=== PATIENT | male | born 1960 | race Caucasian/White ===

== ENCOUNTER 2021-11-08 15:38 | Emergency (ER) | payer OTHER ==
[~2021-11-08] VITALS: Ht 170.2 cm; Wt 72.6 kg
[2021-11-08 15:38] VITALS: BP_SYST 159
--- NOTE | 2021-11-08 15:38 | NUR ---
BROUGHT BACK TO BED #3 AND TRIAGED. REPORT GIVEN TO MIKEY
--- NOTE | 2021-11-08 15:43 | NUR ---
pt ambulated to bed 3
--- NOTE | 2021-11-08 15:44 | NUR ---
61yo m with c/o left-sided chest pain since this morning. cp described as 1/10, pressure-like, non-radiating, aggravated by breathing deeply. pt denies experiencing episode in the past. ermd made aware of pt status.
[2021-11-08 16:27] LABS: BASOPHILS # (AUTO) 0.1 K/uL (0.0-0.2); BASOPHILS % (AUTO) 1.5 % (0.0-2.0); EOSINOPHILS % (AUTO) 0.3 % (0.0-4.0); HEMOGLOBIN 14.1 g/dL (14.0-18.0); LYMPHOCYTES # (AUTO) 0.9 K/uL (1.0-5.5); LYMPHOCYTES % (AUTO) 10.2 % (20.5-51.5); MEAN CORPUSCULAR HEMOGLOBIN 30 pg (27-31); MEAN CORPUSCULAR HGB CONC 34 % (32-36); MEAN CORPUSCULAR VOLUME 88 fL (79.0-98.0); MONOCYTES # (AUTO) 0.4 K/uL (0.0-1.0); MONOCYTES % (AUTO) 4.9 % (1.7-9.3); NEUTROPHILS # (AUTO) 7.4 K/uL (1.8-7.7); NEUTROPHILS % (AUTO) 83.1 % (40.0-70.0); PLATELET COUNT (AUTO) 220 K/uL (130-430); RED BLOOD CELL COUNT(AUTO) 4.66 MIL/uL (4.2-6.2); RED CELL DISTRIBUTION WIDTH 13.3 % (9.0-15.0); WHITE BLOOD COUNT (AUTO) 8.9 K/uL (4.8-10.8)
[2021-11-08 16:48] LABS: ANION GAP 10 (5-15); CALCIUM 9.1 mg/dL (8.4-11.0); CHLORIDE 108 mmol/L (98-107); CREATININE 0.89 mg/dL (0.55-1.30); GLUCOSE 124 mg/dL (70-99); POTASSIUM 3.4 mmol/L (3.5-5.1); SODIUM SERUM 139 mmol/L (136-145); UREA NITROGEN, BLOOD 19 mg/dL (8-21)
[2021-11-08 16:59] LABS: GFR AFRICAN AMERICAN 111 mL/min (>90)
[2021-11-08 17:07] LABS: ALANINE AMINOTRANSFERASE 41 U/L (12-78); ALBUMIN 3.7 g/dL (3.4-4.8); ASPARTATE AMINOTRANSFERASE 20 U/L (10-37); TOTAL BILIRUBIN 0.4 mg/dL (0.0-1.0)
[2021-11-08] MEDS ORDERED: POTASSIUM CHLORIDE 20 MEQ/PKT PACKET PO ONE (17:30)
[2021-11-08 18:15] LABS: INR 1.1 (0.80-1.20)
[2021-11-08] MEDS ORDERED: ASPIRIN 81 MG TAB.CHEW PO ONE (19:00)
--- NOTE | 2021-11-08 19:16 | NUR ---
REPORT GIVEN TO MOON MENJIVAR. ALL CARES TRANSFERRED AT THIS TIME.
[2021-11-08] MEDS ORDERED: NAPR-688 PO (19:33)
[2021-11-08 20:59] VITALS: BP_SYST 159
== END 2021-11-08 20:59 | disposition home or self-care (01) ==
LOC: SED 15:38
DX: R07.9 Chest pain, unspecified (principal); E87.6 Hypokalemia; I10 Essential (primary) hypertension; Z79.899 Other long term (current) drug therapy
CPT/HCPCS: 36415; 71045; 80053; 82550; 83735; 83880; 84100; 84484; 85025; 85379; 85610-TC; 85730-TC; 93005; 99285